=== PATIENT | male | born 2000 | race Caucasian/White ===

== ENCOUNTER 2018-10-03 19:54 | Emergency (ER) | payer MEDICAID ==
[~2018-10-03] VITALS: Ht 177.8 cm; Wt 84.1 kg
[2018-10-03 20:02] VITALS: BP 137/77; Ht 177.8 cm; Wt 84.1 kg
== END 2018-10-03 21:30 | disposition left against medical advice (07) ==
LOC: D.ER 19:54
DX: M25.511 Pain in right shoulder (principal)